=== PATIENT | female | born 1980 | race Hispanic/Latino ===

== ENCOUNTER → 2020-11-18 11:31 | Outpatient (CLI) | payer OTHER, SELFPAY ==
--- NOTE | 2020-11-18 | DI.US.S_ITS ---
PROCEDURE: US PELVIC COMPLETE INDICATIONS: PELVIC PAIN TECHNIQUE: Real-time scanning was performed of the pelvic organs, with image documentation. Additional endovaginal scanning was necessary due to incomplete visualization of the adnexal and endometrial structures by transabdominal scanning. COMPARISON: None. FINDINGS: Uterus: Uterus is normal in size at 6.4 x 5.5 x 9.0 cm, retroverted. . Arcuate uterus morphology. Endometrial lining thickness is 12.9 mm. There is a lower uterine segment left anterior intramural fibroid measuring 1.4 x 1.6 x 1.7 cm. Ovaries: Note is made of a 4.9 x 4.3 x 3.0 cm right ovary, with a right para ovarian anechoic simple cyst measuring 1.5 x 1.2 x 1.4 cm. The left ovary measures 5.6 x 3.3 x 3.2 cm, and there is a echogenic cyst, likely hemorrhagic in origin, measuring up to 2.2 x 1.4 x 1.5 cm at the left ovary. No abnormal internal vascularity. Other: No pathologic free abdominal or pelvic fluid. IMPRESSION: Arcuate morphology of the retroverted uterus, no endometrial mass or abnormal fluid collection is seen. Incidental note is made of a left-sided anterior intramural 1.7 cm maximal dimension fibroid. The ovaries bilaterally show no sign of torsion, and there is a simple appearing right ovarian cyst measuring 1.5 cm and a left-sided 2.2 cm maximal dimension presumed hemorrhagic ovarian cyst but no solid mass lesion is found. No abnormal free fluid throughout the peritoneal space is seen. >> Dictated by: Wally Gallagher M.D. on 11/18/2020 at 13:57 Approved by: Wally Gallagher M.D. on 11/18/2020 at 14:01
== END ==
PROVIDERS: PCP Family Medicine; Referring Provider Family Medicine; Visit Provider Family Medicine
DX: R10.2 Pelvic and perineal pain (principal); D25.1 Intramural leiomyoma of uterus; N83.291 Other ovarian cyst, right side
CPT/HCPCS: 76830; 76856

== ENCOUNTER → 2022-01-26 10:21 | Outpatient (CLI) | payer OTHER, SELFPAY ==
[2022-01-26 19:15] LABS: Cholesterol 139 mg/dL (140-199); HDL Cholesterol 27 mg/dL (40-60); LDL Cholesterol Calculated 81 mg/dL (<100); Triglycerides 155 mg/dL (35-150)
[2022-01-26 19:16] LABS: Alanine Aminotransferase 57 IU/L (<35); Albumin 3.9 g/dL (3.5-5.0); Albumin Globulin Ratio 1.3 (1.0-2.8); Aspartate Aminotransferase 65 IU/L (14-36); Bilirubin Total 1.3 mg/dL (0.2-1.3); Blood Urea Nitrogen 14 mg/dL (7-17); Carbon Dioxide 30 mmol/L (22-32); Chloride 101 mmol/L (98-107); Estimated Glomerular Filt Rate > 60 mL/min (>60); Globulin 3.1 g/dL (1.7-4.1); Glucose 132 mg/dL (70-100); Potassium 3.6 mmol/L (3.4-5.1); Sodium 139 mmol/L (137-145)
[2022-01-26 19:21] LABS: HEMOLYSIS < 15 (0-50)
[2022-01-26 19:40] LABS: TSH w/ Reflex to FT4 1.33 uIU/mL (0.47-4.68)
[2022-01-26 20:21] LABS: Alkaline Phosphatase 84 U/L (38-126)
== END ==
PROVIDERS: PCP Family Medicine; Visit Provider Family Medicine
DX: I10 Essential (primary) hypertension (principal)
CPT/HCPCS: 80053; 80061; 84443